=== PATIENT | female | born 1935 | race Caucasian/White ===

== ENCOUNTER 2016-11-14 10:09 | Emergency (ER) | payer MEDICARE, OTHER ==
[~2016-11-14 10:09] MED LIST: ADULT LOW DOSE81 MG; AGGRENOX CAP1 BOTTLE; ALPHAGAN P 0.15%5 ML OP; ALPHAGAN P10 ML RIGHT EYE; ALPHAGAN P5 M1 OP; AMBIEN; AMBIEN5 MG; AMBIEN5 MG PO; ATENOLOL100 MG; BENZONATATE200 M1 PO; CARVEDILOL25 M1 PO; CARVEDILOL25 MG PO; CATAPRES0.1 M1 PO; CIPRO250 M2 PO; CLEOCIN HCL300 MG PO; CLONIDINE HCL0.1 M2 PO; COUMADIN2.5 M1 PO; COUMADIN2.5 MG PO; COUMADIN5 M2 PO; COUMADIN5 MG PO; CRANBERRY 400 M1 TAB; CRESTOR5 MG; CRESTOR5 MG PO; CRESTOR5 MG/TAB PO; DIOVAN HCT 160/1 TAB; DORZOLAMIDE HCL10 M1 EACH EYE; EDARBI40 M1 PO; EFFEXOR37.5 MG; EFFEXOR37.5 MG PO; FISH OIL PO; FISH OIL1 CAP; FLOVENT DISKUS50 MCG; GAVILAX17 G2 PO; GUAIFENESIN SYRU5 ML PO; HYDROCODON-ACE1 EA16 PO; INVANZ1 G/VIA1 IV; LEVAQUIN500 MG; LEVAQUIN500 MG PO; LEVAQUIN750 MG PO; LEVOTHYROXINE100 MCG PO; LUMIGAN2.5 M1 RIGHT EYE; LUMIGAN2.5 M2 OP; MACRODANTIN50 MG; MULTI VITAMIN1 EAC2 PO; MULTIVITAMIN1 TAB; MULTIVITAMIN1 TAB PO; MULTIVITAMINS1 EAC6 PO; NITROFURANTOIN50 M1 PO; NITROFURANTOIN50 M2 PO; NORCO 5/325 TAB1 TAB PO; NORCO 5/3251 TA2 PO; NORVASC5 MG PO; OMEGA 3 1,0001 EACH PO; OMEGA 3 FISH O1 EACH PO; OMEPRAZOLE20 M3 PO; OMEPRAZOLE20 MG PO; PRILOSEC20 M1 PO; PRILOSEC20 MG; ROBITUSSIN COU118 M8 PO; ROBITUSSIN NIG118 ML PO; ROSUVASTATIN5 MG/TAB PO; SYMBICORT 80-41 PUFF INH; SYMBICORT 80-46.9 GM IH; SYNTHROID100 MCG; TENORMIN50 MG; TRAZODONE HCL50 M1 PO; TRAZODONE HCL50 MG PO; TYLENOL325 M2 PO; TYLENOL500 MG PO; ULTRAM50 M1 PO; VERAPAMIL ER240 MG PO; VERAPAMIL PO; XALATAN2.5 ML; XALATAN2.5 ML OP; ZETIA10 M1 PO; ZETIA10 MG; ZETIA10 MG PO; ZOFRAN4 M1 PO; ZOFRAN4 M2 PO; ZOLPIDEM TARTRAT5 M2 PO; [UNRECOGNIZED DRUG - REMARK]
[2016-11-14 12:07] LABS: BASO % 0.2 % (0-2); EOS % 0.4 % (0-7); EOSINOPHIL ABSOLUTE COUNT 0.1 tho/cmm (0.0-0.7); HCT-HEMATOCRIT 39.2 % (34.0-49.0); HGB-HEMOGLOBIN 12.9 gm/dl (12.0-15.5); IMMATURE GRANULOCYTES ABSOLUTE 0.05 tho/cmm (0-0.03); IMMATURE GRANULOCYTES PERCENT 0.4 % (0-0.3); LYMPH % 22.9 % (20-45); MCH (MEAN CORPUSCULAR HGB) 29.4 pg (28.0-32.0); MCHC MEAN CORPUSCULAR HGB CONC 32.9 % (32.0-36.0); MCV (MEAN CELL VOLUME) 89.3 fl (82.0-96.0); MEAN PLATELET VOLUME 9.4 cmc (9.4-12.4); MONO % 5.7 % (0-12); MONOCYTE ABSOLUTE COUNT 0.8 tho/cmm (0.0-1.2); NEUTROPHIL ABSOLUTE COUNT 9.3 tho/cmm (1.6-8.0); NEUTROPHIL-AUTOMATED 9.3 tho/cmm (1.6-8.0); NEUTROPHILS % 70.4 % (40-80); PLATELET COUNT 402 tho/cmm (150-450); RED BLOOD COUNT 4.39 mil/cmm (4.00-5.20); RED CELL DISTRIBUTION WIDTH 13.3 % (12.4-16.4); WHITE BLOOD COUNT 13.3 tho/cmm (4.0-10.0)
[2016-11-14 12:19] LABS: INR 1.4 INR (0.9-1.1); PROTHROMBIN TIME 16.3 SECONDS (9.0-13.6)
[2016-11-14 12:31] LABS: ANION GAP 15 mmol/L (0-20); BLOOD UREA NITROGEN 9 mg/dl (6-24); CALCIUM 9.6 mg/dl (8.5-10.5); CARBON DIOXIDE-VENOUS 25 mmol/L (22-32); CHLORIDE 105 mmol/l (96-110); CREATININE 0.74 mg/dl (0.50-1.10); GLUCOSE 121 mg/dL (70-110); SODIUM 141 mmol/L (135-145); eGFR VALUE FOR BLACK 88 mL/Min
[2016-11-14] MEDS ORDERED: LUMIGAN2.5 M2 EACH EYE (13:15)
[2017-04-04] MEDS ORDERED: COREG25 M1 PO (19:34)
[2017-04-04] MEDS ORDERED: SYNTHROID100 MC1 PO (19:35)
[2017-04-04] MEDS ORDERED: CATAPRES0.1 M1 PO (19:35)
[2017-04-04] MEDS ORDERED: CRESTOR5 M1 PO (19:35)
[2017-04-04] MEDS ORDERED: LUMIGAN2.5 M2 EACH EYE (19:36)
[2017-04-04] MEDS ORDERED: MULTIVITAMINS1 EAC6 PO (19:36)
[2017-04-04] MEDS ORDERED: MACRODANTIN50 M2 PO (19:37)
[2017-04-04] MEDS ORDERED: OMEPRAZOLE20 M3 PO (19:37)
[2017-04-04] MEDS ORDERED: ROBAFEN100 MG/52 PO (19:37)
[2017-04-04] MEDS ORDERED: COUMADIN2.5 M1 PO (19:38)
[2017-04-04] MEDS ORDERED: SYMBICORT 80-41 PUFF INH (19:38)
[2017-04-04] MEDS ORDERED: CALAN SR240 M1 PO (19:38)
[2017-04-04] MEDS ORDERED: OMEGA 3 1,0001 EAC1 PO (19:39)
[2017-04-04] MEDS ORDERED: ZETIA10 M1 PO (19:39)
[2017-04-05] MEDS ORDERED: LEVOTHYROXINE100 MC1 PO (11:27)
[2017-04-05] MEDS ORDERED: AMBIEN5 M1 PO (11:34)
[2017-04-05] MEDS ORDERED: TRAZODONE HCL50 M1 PO (11:34)
[2017-04-08] MEDS ORDERED: BACTRIM DS TAB1 EAC2 PO (15:07)
[2017-04-08] MEDS ORDERED: XARELTO20 M1 PO (15:07)
[2017-04-08] MEDS ORDERED: MIRAPEX0.125 M1 PO (15:08)
[2017-04-08] MEDS ORDERED: ISOSORBIDE DINI30 M1 PO (15:12)
[2017-04-08] MEDS ORDERED: STOP HOME MEDICATION (15:15)
== END 2016-11-14 14:10 ==
LOC: EDMED 10:09
PROVIDERS: Emergency Medicine
DX: R04.2 Hemoptysis (principal); K62.5 Hemorrhage of anus and rectum; I48.91 Unspecified atrial fibrillation; I10 Essential (primary) hypertension; E78.5 Hyperlipidemia, unspecified; Z79.01 Long term (current) use of anticoagulants; Z79.899 Other long term (current) drug therapy; Z79.890 Hormone replacement therapy; Z90.710 Acquired absence of both cervix and uterus